=== PATIENT | male | born 1980 | race Caucasian/White ===

== ENCOUNTER 2019-03-03 14:17 | Outpatient (AMB) | payer OTHER, SELFPAY ==
--- NOTE | 2019-03-03 15:35 | XR_ITS ---
Examination: Knee, right , 3 viewsTechnique: Knee AP, lateral, oblique 3 viewsDate and time of exam: March 03, 2019 1547 hoursINDICATIONS: Patient kicked a fall today with injury to the foot and kn ee, knee painFINDINGS:No fracture.No dislocationNo foreign body IMPRESSION:No acute fracture
--- NOTE | 2019-03-03 15:35 | XR_ITS ---
Examination: Foot, right, 3 viewsTechnique: AP, oblique, lateral views foot, 3 viewsDate and time of exam: March 03, 2019 1547 hoursINDICATIONS: Injury to the foot today, foot pain.FINDINGS:No acute fracture.No dislocation.No foreign body IMPRESSION:No acute fracture
--- NOTE | 2019-03-03 15:38 | UCVISIT ---
Intake Ht./Wt. Decline/Exclusions Patient Declined Height and Weight this visit: No PT Meets exclusion criteria: No Vital Signs 03/03/19 15:39 Height 1.78 m Height Method Measured Weight 91.767 kg Weight Measurement Method Standing Scale BMI 29.0 Temp 98.7 F Temp Source Temporal Artery Scan Pulse 83 Pulse Source Monitor Respiration 18 BP 122/81 Blood Pressure Source Automatic Cuff Blood Pressure Location Right Upper Arm Position Sitting Pulse Oximetry (%) 100 Oxygen Delivery Method Room Air Intake Zika Travel: No Been in contact w/anyone who has been Dx w/Zika Virus: No Been in contact w/anyone sick during travel outside country: No Patient >or equal to 18 years BMI outside of range 18.5-24.9: Yes Visit Reasons: UC Foot pain Primary Care Provider: Other,. Is patient in pain?: Yes Pain Location:: right great toe Easley-Abbott/Numerical: 8 Pain Scale Used: Numeric (1 - 10) Triage Triage Allergy / Med Rec Allergies No Known Allergies Allergy (Verified 03/03/19 15:40) Medication Reconciliation celecoxib 200 mg capsule 200 mg PO BID PRN #30 cap 03/03/19 [Rx] melatonin PO 03/03/19 [History Confirmed 03/03/19] trazodone PO 03/03/19 [History Confirmed 03/03/19] Past Medical History Reviewed and agree with Nursing documentation.: Yes HPI Foot/Ankle Pain Patient is a 38 male who presents to clinic with complaint of kicking a metal pole because he was angry. Patient reports that since he started having pain to the left knee, and left foot near the toes. Patient's pain is localized, nonradiating, sharp, worse with weightbearing, better with rest and staying off of it. No home remedies other than that. Denies any previous significant injury or surgery to the affected extremity. Review of Systems (UC) Review of Systems All systems reviewed & no additional complaints except as documented Musc Musculoskeletal: Reports as per HPI Exam (UC) Limitations: no limitations General Appearance: alert, in no apparent distress, comfortable, cooperative, healthy appearing, well developed and well groomed Head exam: atraumatic, normocephalic and normal inspection Eye exam: Reports normal appearance and Reports EOMI SPO2%: 100% SPO2 type: Room Air SPO2% Normal/Abnormal: Normal Skin exam: Present warm, dry, intact and normal color Other exam information: Left knee focused exam, gross anatomy is intact without any gross deformity, range of motion is 0 to 125 degrees, without any mechanical catching, negative tenderness to palpation over the MCL, LCL, positive patella pain, negative Mayito, negative Apley. Focused exam left ankle, gross anatomy is intact without any obvious deformity, full range of motion at the ankle, without limitation pain, there is tenderness palpation over the distal phalanxes of 1, 2, 3, 4, 5. But patient is able to wiggle toes without pain capillary refill is less than 2 seconds. Patient does ambulate with a limp, but balance is steady balanced well coordinated. 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 Level 2 ([id number]) Procedures: Pulse Ox reading: Yes Assessment and Plan Assessment & Plan (1) Foot pain: Qualifiers: Laterality: left Qualified Code(s): M79.672 - Pain in left foot (2) Left knee pain: Qualifiers: Chronicity: acute Qualified Code(s): M25.562 - Pain in left knee (3) Contusion of left knee, initial encounter: (4) Contusion of left foot, initial encounter: Plan Details Other Medications: New: trazodone PO melatonin PO celecoxib (Celebrex) 200 mg PO BID PRN 30 caps 0RF pain Other Orders: Orders: XR foot comp RT min 3V Today XR knee RT 3V Today Additional Comments: Appropriate pain mediation was given in the ED and a prescription was sent home with the patient. Instructions to arrange follow-up in 3-7 days were given, as well as reason to return to the ED, including increasing pain, signs or symptoms of neurovascular compromise such as changes in sensation, discoloration or prolonged capillary refill time of the involved extremity, or other concerns of worsening illness. Patient and/or Caregiver verbalized understanding, feels comfortable with proposed plan, and all questions were answered prior to discharge. I emphasized the need for follow-up with their primary care provider. Failure to follow-up could result in a poor outcome or failure of treatment altogether. If the patient is unable to follow-up with their primary care provider, they are to return to the Emergency Department if their symptoms persist or worsen. I have reviewed the discharge treatment plan and follow-up instructions with the patient and/or patient representatives, addressed any concerns, and answered any and all questions. They have verbalized understanding of the discharge treatment plan. Primary Care Provider: Other,. Instructions: ED Contusion Soft Tissue ED Contusion Foot ED Contusion Lower Ext Additional Information PA/SAMEER Supervising Physician: Ata Cheung
[2019-03-03 15:39] VITALS: BP 122/81; PULSE 83; RESP 18; TEMP 37.1; O2SAT 100; BMI 29.0
== END 2019-03-03 16:23 | disposition home or self-care (01) ==
PROVIDERS: Visit Provider Physician Assistant
DX: I10 Essential (primary) hypertension (principal)